=== PATIENT | female | born 1985 | race Caucasian/White ===

== ENCOUNTER 2017-12-16 10:32 | Day surgery (SDC) | payer OTHER ==
[2017-12-16 11:11] LABS: HEMATOCRIT 42.5 % (36.0-47.0); HEMOGLOBIN 14.2 g/dl (12.0-15.5); MEAN CORPUSCULAR HGB CONC 33.4 g/dl (32.0-36.5); MEAN CORPUSCULAR VOLUME 86.7 fl (80.0-96.0); PLATELET COUNT, AUTOMATED 323 10^3/uL (150-450); RED CELL DISTRIBUTION WIDTH 13.6 % (11.5-14.5); WHITE BLOOD COUNT 11.7 10^3/uL (4.0-10.0)
[2017-12-16] MEDS: LR 1,000 ML IV (11:11)
[2017-12-16 11:31] LABS: HCG, SERUM QUANTITATIVE < 1.0 MIU/ML
[2017-12-16] MEDS ORDERED: MIDAZOLAM INJ 2 MG/2 ML VIAL (J2250) As Ordered (12:39)
[2017-12-16] MEDS ORDERED: PROPOFOL 200 MG/20 ML VIAL As Ordered (12:40)
[2017-12-16] MEDS ORDERED: ONDANSETRON 4MG/2ML VIAL (J2405) As Ordered (12:40)
[2017-12-16] MEDS ORDERED: fentaNYL 100 MCG/2 ML INJECTION (J3010) As Ordered (12:40)
[2017-12-16] MEDS ORDERED: dexameTHASONE 4 MG/ML 1ML VIAL (J1100) As Ordered (12:40)
[2017-12-16] MEDS ORDERED: LIDOCAINE 2% INJ 100 MG/5 ML SDV (FOR ANES.) As Ordered (12:40)
[2017-12-16] MEDS ORDERED: KETOROLAC 60 MG/2 ML VIAL (J1885) As Ordered (14:02)
[2017-12-16] MEDS ORDERED: SILVER NITRATE APPLICATOR As Ordered (14:04)
[2017-12-16] MEDS ORDERED: fentaNYL 100 MCG/2 ML INJECTION (J3010) IV (14:30)
[2017-12-16] MEDS ORDERED: LR 1,000 ML IV (14:30)
[2017-12-16] MEDS ORDERED: ONDANSETRON 4MG/2ML VIAL (J2405) IV ×2 (14:30→14:45)
[2017-12-16] MEDS ORDERED: KETOROLAC 30 MG/ML VIAL (J1885) IV (14:45)
[2017-12-16] MEDS ORDERED: DOCUSATE SODIUM 100 MG CAP PO (14:45)
[2017-12-16] MEDS ORDERED: MORPHINE 4 MG/ML 1ML VIAL/SYRINGE (J2270) IV (14:45)
== END 2017-12-16 15:50 | disposition home or self-care (01) ==
LOC: M SDC 10:32
DX: N92.6 Irregular menstruation, unspecified (principal); T83.39XA Other mechanical complication of intrauterine contraceptive device, initial encounter; J45.909 Unspecified asthma, uncomplicated; Z79.899 Other long term (current) drug therapy; Y76.8 Miscellaneous obstetric and gynecological devices associated with adverse incidents, not elsewhere classified
CPT/HCPCS: 58562

== ENCOUNTER 2018-11-07 12:45 | Outpatient (CLI) | payer OTHER ==
[~2018-11-07] VITALS: Ht 165.1 cm; Wt 98.3 kg
[~2018-11-07 12:45] MED LIST: FLON1SPR; ZYRT10CA PO
[2018-11-07] MEDS ORDERED: PRENTAB9 PO (13:07)
[2018-11-07] MEDS ORDERED: MAPA500T2 PO (13:07)
[2018-11-07 13:10] VITALS: BP 110/60
--- NOTE | 2018-11-07 14:02 | IPNPDOC ---
Text Note Date of Service The patient was seen on 11/07/18. NOTE [id number] @ 1341 33 yo presents to L&D Triage @ 0+0 with c/o of severe kidney pain. Denies DFM, LOF, CTXs, and vaginal bleeding. States she had the same pain during her last and needed opioids for the last 3 months of her previous . Told the baby was laying on her kidney causing all of her pain. Today reports 3-4/10 constant sharp pain over her right kidney. Additional pain comes in waves and wraps around her abdomen to the area of her umbilicus described as 9/10 sharp pain. The location of the pain is very specific and not over the right side of the abdomen. Denies anything makes it better or worse. She took 1,000 mg of tylenol this am @0945 with no relief. Reports several times to the RN and this provider that she needed narcotics during her last d/t this pain. S: Pt is resting on her right side in triage bed reporting pain as described a cherrie. Spouse is at bedside. O: VS- BP- 110/6-; HR-81; R-20; T-98.6 FHR- BL-135, moderate variability, + accels(10 x 10), no decelerations CTX-2 isolated CTXs noted, resting tone palpated as soft PMH- asthma(no meds) PSH- Bartholins cyst removal-2013; IUD removal with D&C-2013 MEDS- PNV, tylenol NKDA OBhx- ; Denies hx of GHTN, pre-e, and GDM during pregnancies. Denies complications during or after delivery. SVDs-2007, 2009, 2011, 2013 [place] [place] hx- denies hx STDs Exam- A&O x 3, Lungs CTA, HR-RRR, no m/r/g, no CVA, TTP to the right of L3, no LE edema A: 33 yo @ 30+0 with reactive NST(appropriate for gestational age) without signs of labor. P: urinalysis and urine C&S. NPO. Continue to monitor and assess. Bedrest with BRP. Consult with Dr. Chris. Discussed plan of care with patient. She verbalized understanding. 1402- consulted with Dr. Chris. SBAR given. Plan-if RBCs noted in urine, renal US. Laboratory Tests 2 11/07/18 13:48: Urine Appearance HAZY, Urine Color YELLOW, Urine pH 6.0, Urine Specific [place] 1.024, Urine Protein NEGATIVE, Urine Glucose (UA) NEGATIVE, Urine Ketones TRACEH, Urine Urobilinogen 0.2, Urine Bilirubin NEGATIVE, Urine Leukocyte Esterase 1+H, Urine Blood NEGATIVE, Urine Nitrite NEGATIVE, Urine WBC (Auto) 1, Urine RBC (Auto) 5H, Urine Hyaline Casts (Auto) 0, Urine Bacteria (Auto) 1+H, Urine Squamous Epithelial Cells 11, Urine Mucus (Auto) LARGE, Urine Sperm (Auto) Vital Signs Date Time Temp Pulse Resp B/P (MAP) Pulse Ox O2 Delivery O2 Flow Rate FiO2 11/07/18 13:10 98.6 81 20 110/60 (77) 1415 P: RBCs noted in urine. Renal US ordered. Laboratory Tests 2 11/07/18 13:48: Urine Amphetamines Screen NEGATIVE, Urine Benzodiazepines Screen NEGATIVE, Urine Opiates Screen NEGATIVE, Urine Methadone Screen NEGATIVE, Urine Barbiturates Screen NEGATIVE, Urine Phencyclidine Screen NEGATIVE, Urine Cocaine Metabolite Screen NEGATIVE, Urine Cannabinoids Screen NEGATIVE Renal US- Right kidney mild-moderate hydro. Prox ureter seen but not followed d/t bowel gas and . Left kidney, and bladder WNL. 1625- consulted with Dr. Chris. Strict return precautions for fever or worsening s/s. Urology consult to be placed for out-patient consult(done 11/07/2018 and sent to [facility]). Flomax 0.4 mg 1 x day PO 30 min after the same meal; Percocet 5/325 mg 1-2 tabs PO Q 6 hour as needed for pain, not to exceed 6 tabs/day; Phenergan 25 mg PO Q 8 hours as needed for nausea. 1736- Pt has been medicated with phenergan 25 mg PO and percocet 5/325 mg x 2 PO approx 30 min ago. Discharge medications discussed with patient and spouse. Sent with rx from [facility]: Phenergan 25 mg #10 tabs Percocet 5/325 mg #30 tabs-Pt filled out the paper work for percocet. Colace 100 mg S: Pt resting on right side dosing on and off. Reports her pain has decreased since medication was given. Spouse at bedside. O: VS- WNL, afebrile FHR- BL-150, mod variability, + accels(10 x 10), no decelerations CTX- none, resting tone palpated as soft A: 33 yo @ 30+0 with reactive NST, no CTXs, Right hydronephrosis. P: Discharge to home with strict return precautions. Discharge meds and rx to go to [facility]. Medication refills at [place] submitted. . VS,Fishbone, I+O VS, Fishbone, I+O Vital Signs Date Time Temp Pulse Resp B/P (MAP) Pulse Ox O2 Delivery O2 Flow Rate FiO2 11/07/18 13:10 98.6 81 20 110/60 (77) OPAL DAILEY CNM Nov 07, 2018 14:02
[2018-11-07 14:11] LABS: APPEARANCE, URINE HAZY (CLEAR); BACTERIA, URINE AUTO 1+ (NEGATIVE); BILIRUBIN, URINE AUTO NEGATIVE (NEGATIVE); BLOOD, URINE BLOOD NEGATIVE (NEGATIVE); COLOR, URINE YELLOW (YELLOW); GLUCOSE, URINE (UA) AUTO NEGATIVE (NEGATIVE); KETONE, URINE AUTO TRACE mg/dL (NEGATIVE); LEUKOCYTE ESTERASE, URINE AUTO 1+ (NEGATIVE); MUCUS, URINE LARGE (NEGATIVE); NITRITE, URINE AUTO NEGATIVE (NEGATIVE); PROTEIN, URINE AUTO NEGATIVE (NEGATIVE); RBC, URINE AUTO 5 /HPF (0-3); SPECIFIC GRAVITY URINE AUTO 1.024 (1.002-1.035); SQUAMOUS EPITHELIAL CELL UR AU 11 /HPF (0-6); UROBILINOGEN, URINE AUTO 0.2 mg/dL (0.0-2.0); WBC, URINE AUTO 1 /HPF (0-3)
[2018-11-07 14:23] LABS: AMPHETAMINES URINE REFLEX NEGATIVE (NEGATIVE); BARBITURATES URINE REFLEX NEGATIVE (NEGATIVE); BENZODIAZEPINES URINE REFLEX NEGATIVE (NEGATIVE); CANNABINOIDS URINE REFLEX NEGATIVE (NEGATIVE); COCAINE METABOLITE URINE REFLE NEGATIVE (NEGATIVE); METHADONE URINE REFLEX NEGATIVE (NEGATIVE); OPIATES URINE REFLEX NEGATIVE (NEGATIVE); PHENCYCLIDINE URINE REFLEX NEGATIVE (NEGATIVE)
[2018-11-07] MEDS ORDERED: CYCLOBENZAPRINE 10 MG TAB PO ONE (14:45)
[2018-11-07] MEDS ORDERED: PROMETHAZINE 25 MG TAB PO ONE (16:45)
[2018-11-07] MEDS ORDERED: PERCOCET 5MG/325MG TAB PO ONE (16:45)
[2018-11-07 17:49] VITALS: BP 103/62
[2018-11-08] MEDS ORDERED: KEFL500C17 PO (06:22)
--- NOTE | 2018-11-08 08:16 | REP ---
RENAL ULTRASOUND: Real-time sonographic evaluation of the kidneys performed. Kidneys are normal in size and echotexture, right kidney measuring 13.6 x 6.6 x 6.6 cm and left kidney 14.0 x 5.1 x 5.2 cm. There is mild to moderate right hydronephrosis. No renal stone is seen. There is no left hydronephrosis or nephrolithiasis. Urinary bladder is not optimally distended and not well evaluated. Volume is only 32 mL. Fetus is seen in the uterus with a heart rate of 152 beats per minute. IMPRESSION: Mild to moderate right hydronephrosis. Electronically Signed by Raymond Ozuna MD 11/08/2018 10:25 A
== END 2018-11-07 17:58 | disposition home or self-care (01) ==
LOC: M LDO 12:45
PROVIDERS: ATTEND Midwife
DX: O26.833 Pregnancy related renal disease, third trimester (principal); N13.30 Unspecified hydronephrosis; R31.9 Hematuria, unspecified; Z3A.30 30 weeks gestation of pregnancy
CPT/HCPCS: 59025; 76775; 80307; 81001; 87086; G0378; G0463

== ENCOUNTER 2018-11-08 02:29 | Emergency (ER) | payer OTHER ==
[~2018-11-08] VITALS: Ht 165.1 cm; Wt 98.2 kg
[~2018-11-08 02:29] MED LIST changes: +MAPA500T2 PO; +PRENTAB9 PO
[2018-11-08 02:56] LABS: BASO % 0.2 % (0.0-1.0); EOS % 0.1 % (0.0-3.0); HEMATOCRIT 38.4 % (36.0-47.0); HEMOGLOBIN 12.9 g/dl (12.0-15.5); LYMPH # 1.8 10^3/uL (1.5-4.5); LYMPH % 9.5 % (24.0-44.0); MEAN CORPUSCULAR HEMOGLOBIN 28.9 pg (27.0-33.0); MEAN CORPUSCULAR HGB CONC 33.6 g/dl (32.0-36.5); MEAN CORPUSCULAR VOLUME 86.1 fl (80.0-96.0); MONO # 1.2 10^3/uL (0.0-0.8); MONO % 6.7 % (0.0-5.0); NEUTROPHILS # 15.2 10^3/uL (1.8-7.7); NEUTROPHILS % 82.6 % (36.0-66.0); PLATELET COUNT, AUTOMATED 266 10^3/uL (150-450); RED BLOOD COUNT 4.46 10^6/uL (4.00-5.40); WHITE BLOOD COUNT 18.4 10^3/uL (4.0-10.0)
[2018-11-08] MEDS ORDERED: NS 1,000 ML IV ONE ×2 (03:00→04:45)
[2018-11-08] MEDS ORDERED: MORPHINE 10 MG/ML 1ML VIAL (J2270) IV ONE (03:00)
[2018-11-08 03:19] LABS: ALBUMIN 3.2 GM/DL (3.2-5.2); ALT/SGPT 13 U/L (12-78); BILIRUBIN,DIRECT 0.1 MG/DL (0.0-0.2); BILIRUBIN,TOTAL 0.5 MG/DL (0.2-1.0); BLOOD UREA NITROGEN 11 MG/DL (7-18); CALCIUM LEVEL 8.8 MG/DL (8.5-10.1); CARBON DIOXIDE LEVEL 20 MEQ/L (21-32); CHLORIDE LEVEL 106 MEQ/L (98-107); CREATININE FOR GFR 0.88 MG/DL (0.55-1.30); GLOMERULAR FILTRATION RATE > 60.0 (>60); GLUCOSE, FASTING 83 MG/DL (70-100); LIPASE 166 U/L (73-393); POTASSIUM SERUM 3.5 MEQ/L (3.5-5.1); SODIUM LEVEL 138 MEQ/L (136-145); TOTAL PROTEIN 7.2 GM/DL (6.4-8.2)
[2018-11-08] MEDS ORDERED: cefTRIAXone SOD 1 GM in D5W MINI-BAG PLUS 50 ML IV ONE (03:45)
--- NOTE | 2018-11-08 04:13 | REPVR ---
EXAM: US Retroperitoneal Limited, Kidneys EXAM DATE/TIME: 11/08/2018 3:26 AM CLINICAL HISTORY: 33 years old, female; Pain; Abdominal pain; Flank; Right; TECHNIQUE: Imaging protocol: Real-time ultrasound of the retroperitoneum with image documentation. Examination was focused on the kidneys. COMPARISON: RENAL US 11/07/2018 3:37 PM FINDINGS: Right kidney: The right kidney measures 14.8 cm in its cephalocaudad dimension and 8.1 x 7.4 cm in diameter. There is moderate right hydronephrosis. No mass or cyst is seen. Left kidney: The left kidney measures 13.6 cm in its cephalocaudad dimension and 5.6 x 5.4 cm in diameter. No mass, cyst or hydronephrosis. Bladder: The urinary bladder is empty. IMPRESSION: 1. Moderate right hydronephrosis which is similar to 11/07/2018. 2. Otherwise negative renal sonogram Electronically signed by: Juan Carlos Beach On 11/08/2018 04:12:37 AM
--- NOTE | 2018-11-08 04:15 | REPVR ---
EXAM: US , Limited EXAM DATE/TIME: 11/08/2018 3:26 AM CLINICAL HISTORY: 33 years old, female; Pain; Other: RT flank pain; Gestational age or lmp: 30w 1d; . Evaluate amniotic fluid level. TECHNIQUE: Imaging protocol: Real-time ultrasound of the maternal uterus with image documentation. Exam focused on the clinical indication. COMPARISON: RENAL US 11/07/2018 3:37 PM FINDINGS: GESTATION: Gestation: Single intrauterine fetus. Heart rate: heartbeat of 158 beats per minute. Presentation: Cephalic presentation. Placenta: Anterior placenta. Amniotic fluid: Normal REJI of 15.5 cm. MATERNAL: Cervix: Closed cervix measuring 4.3 cm. IMPRESSION: 1. Single live intrauterine fetus in cephalic presentation. 2. Normal REJI of 15.5 cm. Electronically signed by: Juan Carlos Beach On 11/08/2018 04:14:39 AM
[2018-11-08] MEDS ORDERED: KEFL500C17 PO (06:22)
[2018-11-08] MEDS ORDERED: NORCO 5/325MG TABLET (BULK FOR ED) PO ONE (06:30)
[2018-11-08 06:41] VITALS: BP 128/81
== END 2018-11-08 06:43 | disposition home or self-care (01) ==
LOC: M ED 02:29
DX: O99.89 Other specified diseases and conditions complicating pregnancy, childbirth and the puerperium (principal); N20.1 Calculus of ureter; Z3A.30 30 weeks gestation of pregnancy; Z87.442 Personal history of urinary calculi; Z79.899 Other long term (current) drug therapy
CPT/HCPCS: 36415; 76775; 76815; 76820; 80048; 80076; 81001; 83690; 85025; 87086; 96361; 96374; 96375; 99284; J0696; J2270

== ENCOUNTER → 2018-11-16 | Outpatient (REF) | payer OTHER ==
[~2018-11-16] MED LIST changes: +KEFL500C17 PO
[2018-11-20 00:07] LABS: CA Oxalate Dihy 25 % (.); Ca Ox Monohydrate 40 % (.); Size 8x6x3 mm (.)
== END ==
LOC: M SMT 12:51
PROVIDERS: ATTEND Nurse Practitioner Family
DX: N20.0 Calculus of kidney (principal)

== ENCOUNTER 2019-01-15 13:44 | Inpatient (IN) | payer OTHER ==
[~2019-01-15] VITALS: Ht 165.1 cm; Wt 98.4 kg
[2019-01-15] VITALS (28 sets, daily range): BP systolic 93–127; BP diastolic 57–85
[2019-01-15 15:29] LABS: HEMATOCRIT 40.5 % (36.0-47.0); HEMOGLOBIN 13.4 g/dl (12.0-15.5); MEAN CORPUSCULAR HEMOGLOBIN 28.7 pg (27.0-33.0); MEAN CORPUSCULAR HGB CONC 33.1 g/dl (32.0-36.5); MEAN CORPUSCULAR VOLUME 86.7 fl (80.0-96.0); PLATELET COUNT, AUTOMATED 252 10^3/uL (150-450); RED BLOOD COUNT 4.67 10^6/uL (4.00-5.40); WHITE BLOOD COUNT 9.1 10^3/uL (4.0-10.0)
[2019-01-15] MEDS ORDERED: LR 1,000 ML IV SCH (15:43)
[2019-01-15] MEDS ORDERED: LACTATED RINGER'S 1000 ML IV STA (15:43)
[2019-01-15] MEDS ORDERED: OXYTOCIN DRIP 30 UNITS in APPROPRIATE DILUENT 1 EA IV SCH (15:45)
[2019-01-15] MEDS ORDERED: OXYTOCIN 30 UNITS IN 0.9% NaCl 500ML IV BAG (J2590) As Ordered ONE (15:45)
--- NOTE | 2019-01-15 15:59 | HPEPDOC ---
Obstetrical History & Physical General Date of Admission January 15, 2019 at 13:44 History of Present Illness 33 y/o at 39+6 with unstable lie, came in for an ECV last week and was vtx. Preg uncomplicated. No LOF/VB/reg ctx's. Pos FM. Chief Complaint: LOF, term Care Care: Good Care Dating Final EDC by: LMP, 1st trimester (US) Past Medical History Past Obstetrical History : Past Obstetrical History: Multigravida Type of Delivery: Spontaneous Vaginal Del. (x4, largest 8 lb 11 oz) GRINDER AND PLATER History: No pertinent history Past Medical History Medical History mild asthma, uses albuterol 2-3x/year Surgical History: Leon teeth, Other (IUD removal in surgery once, Bartholins gland removal x1) Family History Significant Family History: No pertinent family hx Social History Marital Status: Family situation: Spouse/partner home Psychosocial History: No pertinent psych hx * Smoker: non-smoker Alcohol: Denies Drugs: denies Abuse Violence Screening Have you been hit/kicked/slapp: No Have you been sexually assault: No Imunizations Tdap status: current Influenza Status: current Allergies Coded Allergies: No Known Allergies (Unverified , 12/10/17) Medications No Active Prescriptions or Reported Meds Physical Examination Physical Examination GENERAL: Alert and oriented times three. ABDOMEN: Gravid and non-tender to touch. FETUS: Is vertex (VTX) by sterile vaginal examination (SVE), 3/75/-3/vtx ballotable EXTREMITIES: No edema. Vital Signs/I&O Vital Signs Date Time Temp Pulse Resp B/P (MAP) Pulse Ox O2 Delivery O2 Flow Rate FiO2 01/15/19 14:03 98.4 88 16 110/79 (89) Laboratory Data 24H LABS Laboratory Tests 2 01/15/19 13:55: Serology Scanned Report Hepatitis B Testing 01/15/19 15:17: Nucleated Red Blood Cells % (auto) 0.0 CBC/BMP Laboratory Tests 01/15/19 15:17 Red Blood Count 4.67, Mean Corpuscular Volume 86.7, Mean Corpuscular Hemoglobin 28.7, Mean Corpuscular Hemoglobin Concent 33.1, Red Cell Distribution Width 14.0 Urine Culture: No Growth Pertinent Laboratoy Data Blood Type: O+ RBC Antibody Screen: Negative HIV: Negative Hepatitis B: Negative Hepatitis C: Unknown Rapid Plasma Reagin: Nonreactive Rubella: Immune Varicella: Immune Chlamydia/Gonorrhea: Negative Group B Streptococcus: Negative Anatomy Ultrasound Placenta Location: Anterior Normal Anatomy: Yes (first US showed CP cysts, second US a month later these were resolved) Assessment Variability: Moderate Accelerations: Positive Decelerations: None Tocometer Contractions: Yes Frequency: irregular Duration: less than 60 seconds Strength: palpated as mild Assessment/Plan Assessment 39+6 with unstable lie Plan Admit and orient. [employer] Helper and consent. Diet: clrs Group B Streptococcus (GBS) neg Labs and intravenous (IV) per unit protocol. Counseled on Pitocin and induction of labor (IOL). Lactated Ringers (LR): Bolus 1000 mL prior to epidural, then at 125 mL/hr. Anticipate normal spontaneous delivery () C-S as appropriate. Sessions SESSIONS,PHONG Allison MD January 15, 2019 15:59
[2019-01-15] MEDS: LR 1,000 ML IV SCH (17:34)
[2019-01-15] MEDS ORDERED: FENTANYL 2MCG/ML ROPIVACAINE 0.2% IN 0.9% NACL 100ML IVBAG As Ordered ONE (22:21)
[2019-01-15] MEDS ORDERED: NALOXONE INJ 0.4 MG/1 ML VIAL (J2310) IV PRN (22:42)
[2019-01-15] MEDS ORDERED: EPIDURAL COMMENT XX SCH (22:42)
[2019-01-15] MEDS ORDERED: FENTANYL/ROPIVACAINE/NACL BAG 100 ML EPIDURAL SCH (22:42)
[2019-01-15] MEDS ORDERED: diphenhydrAMINE INJ 50MG/ML VIAL (J1200) IV PRN (22:42)
[2019-01-15] MEDS ORDERED: ONDANSETRON 4MG/2ML VIAL (J2405) IV PRN (22:42)
[2019-01-15] MEDS ORDERED: ePHEDrine SULFATE 25 MG/5 ML(5MG/ML) SYRINGE IV PRN (22:42)
[2019-01-15] MEDS ORDERED: EPIDURAL/PCA KEYS XX PRN (22:42)
[2019-01-15] MEDS ORDERED: REFRIGERATOR IV KEYS XX PRN (22:42)
[2019-01-16] VITALS (26 sets, daily range): BP systolic 70–114; BP diastolic 44–67
[2019-01-16] MEDS: LR 1,000 ML IV SCH
[2019-01-16] MEDS ORDERED: ONDANSETRON 4MG/2ML VIAL (J2405) IV SCH (01:00)
[2019-01-16] MEDS ORDERED: ONDANSETRON 4MG/2ML VIAL (J2405) IV PRN (01:15)
[2019-01-16] MEDS ORDERED: ACETAMINOPHEN 500 MG TAB PO PRN (01:15)
[2019-01-16] MEDS: OXYTOCIN INJ 10 UNITS/ML VIAL (J2590) IV ONE ×2 (07:16→08:45)
[2019-01-16 07:31] LABS: CORD GAS ABE V -5.1; CORD GAS HCO3 V 18.6 MEQ/L; CORD GAS O2 SAT V 90.5 %; CORD GAS PCO2 V 31.9 mmHg; CORD GAS PH V 7.384 UNITS; CORD GAS PO2 V 47.8 mmHg; CORD GAS SBC V 20.2 MEQ/L; CORD GAS TCO2 V 19.6 MEQ/L
[2019-01-16 07:34] LABS: CORD GAS ABE A -4.9; CORD GAS HCO3 A 18.8 MEQ/L; CORD GAS O2 SAT A 90.7 %; CORD GAS PCO2 A 32.2 mmHg; CORD GAS PH A 7.385 UNITS; CORD GAS PO2 A 48.2 mmHg; CORD GAS SBC A 20.3 MEQ/L; CORD GAS TCO2 A 19.8 MEQ/L
[2019-01-16] MEDS ORDERED: OXYTOCIN DRIP 30 UNITS in APPROPRIATE DILUENT 1 EA IV SCH (07:52)
[2019-01-16] MEDS ORDERED: MEASLES,MUMPS,RUBELLA VACCINE INJ (MMR-II) (90707) SC SCH (08:00)
[2019-01-16] MEDS ORDERED: RHOGAM 300 MCG (1500 IU) INJ (J2790) IM SCH (08:00)
[2019-01-16] MEDS ORDERED: DIBUCAINE 1% OINTMENT 30GM TOP PRN (08:00)
[2019-01-16] MEDS ORDERED: METHYLERGONOVINE MALEATE 0.2 MG TAB PO PRN (08:00)
[2019-01-16] MEDS ORDERED: OXYTOCIN INJ 10 UNITS/ML VIAL (J2590) IV ONE (08:00)
[2019-01-16] MEDS ORDERED: DOCUSATE SODIUM 100 MG CAP PO PRN (08:00)
[2019-01-16] MEDS ORDERED: ANUSOL HC CREAM 30GM TOP PRN (08:00)
[2019-01-16] MEDS ORDERED: IBUPROFEN 600 MG TAB PO PRN (08:00)
[2019-01-16] MEDS ORDERED: MOM 30ML SUSPENSION UDC PO PRN (08:00)
[2019-01-16] MEDS: PRENATAL VITAMINS CHEWABLE TABLET PO SCH (09:00)
--- NOTE | 2019-01-16 12:47 | IPN ---
DATE: 01/15/2019 This lady is a 34-year-old 5, para 4 at 39 and 6 weeks of gestation, was admitted this morning for induction of labor because of failed external cephalic version which resulted in her having, in fact, baby spontaneously coming into a vertex presentation but very high. She is group B Streptococcus (GBS) negative, and she was started induction of labor with Pitocin. On admission, her cervical exam was 2-3 cm high posterior. On Pitocin, she had some late decelerations with recovery, variability was moderate, and baseline was normal. The Pitocin had to be turned down, and she still had intermittent late decelerations on small units of Pitocin. Therefore, resuscitation measures were performed with intravenous (IV) fluids, changing position, nasal oxygen, and eventually we had to turn off the Pitocin because of the failure to respond back to a category 1 strip. With that in mind, we had a discussion with and the patient in regards to forward management at the present time. Evaluation of the cervix, again, the patient was 2-3 cm posterior thick, and the presenting part was very high. Therefore, our plan of management is recommended to the patient and would be to establish an epidural in case we needed a quick access for a stat section. Again, start Pitocin at 2-4 milliunits, and when appropriate to an artificial rupture of membranes (AROM) to determine whether or not the baby will respond in a positive attitude and we should have a negative contraction stress test. If we have a positive contraction stress test, then it would solidify our plan to go to a section. The patient and agree to the plan of management is presently safe to proceed. Patient is being IV bolused for the epidural, and we will reevaluate once the epidural is in place. We spent 30 minutes discussing the plan of care with the patient.
--- NOTE | 2019-01-16 15:02 | IPN ---
DATE: 01/16/2019 This lady, 5, para 4, was admitted for induction of labor because of an unstable lie, had Pitocin ongoing; however, had some late decelerations with Pitocin. The Pitocin was turned off and resuscitation was commenced, and the baby had a category 1 strip. Our plan of management was to put an epidural in and do an artificial rupture of membranes (AROM) and evaluate from there if the heart met criteria for a category 1 or a 2 strip. After the epidural, on evaluation, it appeared the lady a high leak. She is still 3 cm, posterior and ARM draining the rest of the fluid, which was clear. The presenting part came down to the cervix and was becoming well applied. There were some spontaneous contractions. A category 1 strip was noted. Our plan of care presently is to allow her to labor down and evaluate in 2 hours time. The patient expressed understanding of plan of care. Safe to proceed.
[2019-01-16] MEDS: IBUPROFEN 800 MG TAB PO PRN ×2 (15:31→23:55)
[2019-01-17 05:57] VITALS: BP 100/61
[2019-01-17 06:28] LABS: HEMATOCRIT 36.8 % (36.0-47.0); HEMOGLOBIN 12.1 g/dl (12.0-15.5); MEAN CORPUSCULAR HEMOGLOBIN 28.9 pg (27.0-33.0); MEAN CORPUSCULAR HGB CONC 32.9 g/dl (32.0-36.5); MEAN CORPUSCULAR VOLUME 87.8 fl (80.0-96.0); PLATELET COUNT, AUTOMATED 215 10^3/uL (150-450); RED BLOOD COUNT 4.19 10^6/uL (4.00-5.40); WHITE BLOOD COUNT 13.4 10^3/uL (4.0-10.0)
[2019-01-17] MEDS: IBUPROFEN 800 MG TAB PO PRN (06:42)
--- NOTE | 2019-01-17 06:47 | DS.PDOC ---
Discharge Summary General Date of Admission January 15, 2019 at 13:44 Date of Discharge January 17, 2019 Discharge Summary HOSPITAL COURSE: Ms. Vilchis is a 34 yo G5 now P5 who underwent an uncomplicated on 16Jan2019 after being admitted for an IOL for unstable lie. Her course has been unremarkable. On her day of discharge she met all appropriate discharge criteria. She was ambulating, voiding, tolerating a regular diet, had minimal lochia and her pain was well controlled with PO medications. DISCHARGE MEDICATIONS: Please see below. ALLERGIES: Please see below. PHYSICAL EXAMINATION ON DISCHARGE: VITAL SIGNS: Please see below. GENERAL: AAOX3, sitting up in bed, NAD ABDOMINAL EXAMINATION: Fundus firm at U-2. No fundal tenderness. EXTREMITIES: No edema PSYCHIATRIC EXAMINATION: Affect appropriate. LABORATORY DATA: Please see below. ACTIVITY: Pelvic rest for 6 weeks. DIET: Regular DISCHARGE PLAN: Discharge home DISPOSITION: Discharge home on 17Jan2019. DISCHARGE INSTRUCTIONS: 1. pelvic rest for 6 weeks. ITEMS TO FOLLOWUP ON ON OUTPATIENT: 1. visit in 6 weeks DISCHARGE CONDITION: Stable. TIME SPENT ON DISCHARGE: Greater than 20 minutes. Sebastian Mchugh, Vital Signs/I&Os Vital Signs Date Time Temp Pulse Resp B/P (MAP) Pulse Ox O2 Delivery O2 Flow Rate FiO2 01/17/19 05:57 97.6 75 16 100/61 (74) 01/16/19 10:44 98 I&O- Last 24 Hours up to 6 AM 01/17/19 06:00 Intake Total 1184.3 ml Output Total 2450 ml Balance -1265.7 ml Laboratory Data Labs 24H Laboratory Tests 2 01/16/19 07:24: Cord Arterial Blood pH 7.385, Cord Arterial Blood PCO2 32.2, Cord Arterial Blood PO2 48.2, Cord Arterial Blood HCO3 18.8, Cord Arterial Blood Total CO2 19.8, Cord Arterial Blood Base Excess -4.9, Cord Arterial Base Excess (Standard 20.3, Cord Arterial Bld Oxygen Saturation 90.7, Cord Venous Blood pH 7.384, Cord Venous Blood PCO2 31.9, Cord Venous Blood PO2 47.8, Cord Venous Blood HCO3 18.6, Cord Venous Blood Total CO2 19.6, Cord Venous Base Excess (Actual) -5.1, Cord Venous Base Excess (Standard) 20.2, Cord Venous Blood Oxygen Saturation 90.5 01/17/19 06:03: Nucleated Red Blood Cells % (auto) 0.0 CBC/BMP Laboratory Tests 01/17/19 06:03 Red Blood Count 4.19, Mean Corpuscular Volume 87.8, Mean Corpuscular Hemoglobin 28.9, Mean Corpuscular Hemoglobin Concent 32.9, Red Cell Distribution Width 14.0 Discharge Medications No Active Prescriptions or Reported Meds Allergies Coded Allergies: No Known Allergies (Unverified , 12/10/17) SEBASTIAN MCHUGH DO Jan 17, 2019 06:47
[2019-01-17] MEDS ORDERED: DIBU10OI TOP (06:49)
[2019-01-17] MEDS ORDERED: PROC1CRE5 TOP (06:49)
[2019-01-17] MEDS ORDERED: IBUP80TA PO (06:49)
[2019-01-17] MEDS: PRENATAL VITAMINS CHEWABLE TABLET PO SCH (08:19)
--- NOTE | 2019-01-17 10:36 | DN ---
DATE: 01/16/2019 DELIVERY NOTE This lady is a 5, para 4 admitted for induction of labor because of unstable lie. She had an epidural in place and a spontaneous vaginal delivery of a live male infant, 8 pounds 3 ounces, 3850 grams, scores of 9 and 9 at one and five minutes respectively. Arterial pH 7.3, base excess -4.9, venous pH 7.38, base excess -5.1. Placenta delivered spontaneously thereafter, three vessels in the cord, membranes and tissues intact. She sustained a small first-degree tear, which was oversewn in the usual fashion with #2-0 Vicryl on [id number]. On re-examination, the cervix was normal, anterior, posterior and lateral blanchard were complete. Sphincter was tight. Uterus was contracted 2 below on Pitocin. In summary, we have a term gestation, delivered a live male infant.
--- NOTE | 2019-01-19 22:40 | IPN ---
DATE: 01/16/2019 This patient requested circumcision of her male after discussing risks and benefits of circumcision, the medical and nonmedical indications, the penile block and aftercare, expressed understanding of penile block and aftercare and bleeding, signed the consent form. All questions were answered. 20-minute discussion. We await clearance by the central aisle cashier.
== END 2019-01-17 15:15 | disposition home or self-care (01) | DRG 807 ==
LOC: M LDI 13:44 → M OBS 01-16 10:35
PROVIDERS: ADMIT Obstetrics & Gynecology; ATTEND Obstetrics & Gynecology
PROC: 10E0XZZ Delivery of Products of Conception, External Approach (ICD-10-PCS; principal; 2019-01-16)
PROC: 0HQ9XZZ Repair Perineum Skin, External Approach (ICD-10-PCS; 2019-01-16)
PROC: 3E033VJ Introduction of Other Hormone into Peripheral Vein, Percutaneous Approach (ICD-10-PCS; 2019-01-16)
PROC: 10907ZC Drainage of Amniotic Fluid, Therapeutic from Products of Conception, Via Natural or Artificial Opening (ICD-10-PCS; 2019-01-16)
DX: O32.0XX0 Maternal care for unstable lie, not applicable or unspecified (principal); Z37.0 Single live birth; Z3A.39 39 weeks gestation of pregnancy; O70.0 First degree perineal laceration during delivery